=== PATIENT | male | born 1965 | race Caucasian/White ===

== ENCOUNTER 2016-09-24 18:37 | Observation (INO) | payer OTHER, SELFPAY ==
[~2016-09-24] VITALS: Ht 185.4 cm; Wt 100.5 kg
[~2016-09-24 18:37] MED LIST: BACITAB PO; LEVA750T7 PO; UNABLE TO OBTAIN
[2016-09-24 19:38] LABS: VENOUS BASE EXCESS 0.7 (-2.0-2.0); VENOUS O2 SATURATION 97.2 % (60.0-80.0); VENOUS PARTIAL PRESSURE CO2 47.2 mmHg (38.0-50.0); VENOUS PARTIAL PRESSURE O2 93.8 mmHg (30.0-50.0); VENOUS STANDARD HCO3 25.1 MEQ/L
[2016-09-24 19:43] LABS: MEAN CORPUSCULAR HEMOGLOBIN 31.2 pg (27.0-33.0); MEAN CORPUSCULAR HGB CONC 34.6 g/dl (32.0-36.5); MEAN CORPUSCULAR VOLUME 90.2 fl (80.0-96.0); RED CELL DISTRIBUTION WIDTH 14.1 % (11.5-14.5); WHITE BLOOD COUNT 8.8 K/mm3 (4.0-10.0)
[2016-09-24 20:11] LABS: ALBUMIN 3.5 GM/DL (3.2-5.2); ALBUMIN/GLOBULIN RATIO 1.09 (1.00-1.93); ALKALINE PHOSPHATASE 103 U/L (45-117); ALT/SGPT 64 U/L (12-78); ANION GAP 9 MEQ/L (8-16); AST/SGOT 33 U/L (15-37); BILIRUBIN,DIRECT 0.1 MG/DL (0.0-0.2); BILIRUBIN,TOTAL 0.4 MG/DL (0.2-1.0); BLOOD UREA NITROGEN 14 MG/DL (7-18); CALCIUM LEVEL 8.4 MG/DL (8.5-10.1); CARBON DIOXIDE LEVEL 28 MEQ/L (21-32); CHLORIDE LEVEL 108 MEQ/L (98-107); CREATININE FOR GFR 1.02 MG/DL (0.70-1.30); GLOMERULAR FILTRATION RATE > 60.0 (>60); GLUCOSE, FASTING 96 MG/DL (70-105); POTASSIUM SERUM 4.1 MEQ/L (3.5-5.1); SODIUM LEVEL 145 MEQ/L (136-145); TOTAL PROTEIN 6.7 GM/DL (6.4-8.2)
--- NOTE | 2016-09-24 20:50 | REPUSA ---
CT of the head Clinical history: altered mental status. Technique: Multiple axial CT images were obtained through the head without administration of contrast . Findings: The ventricles and sulci are symmetric bilaterally. There is no evidence of acute hemorrhag e or infarct. There is no midline shift, mass effect, or extra-axial fluid collection. The osseous st ructures are unremarkable. The visualized paranasal sinuses and mastoid air cells are clear. Impression: Negative study.
[2016-09-24 20:54] LABS: METHADONE URINE NEGATIVE (NEGATIVE)
[2016-09-24] MEDS ORDERED: NALOXONE INJ 2 MG/2 ML SYRINGE (J2310) IV STA (21:29)
[2016-09-25] VITALS (7 sets, daily range): BP systolic 85–135; BP diastolic 56–80; PULSE 53
[2016-09-25] MEDS: NS 1,000 ML IV SCH ×3 (02:07→21:54)
[2016-09-25] MEDS ORDERED: ONDANSETRON 4MG/2ML VIAL (J2405) IV PRN (02:15)
[2016-09-25] MEDS: HEPARIN SOD (PORCINE) 5000 UNITS/ML VIAL SC SCH ×3 (06:01→21:53)
--- NOTE | 2016-09-25 06:13 | HPEPDOC ---
Medical History and Physical Date of Admission 09/25/2016 History and Physical PRIMARY CARE PROVIDER: None listed ATTENDING: Admitting provider Didier Zapien D.O. hospitalist in the morning will be Dr. Contreras CHIEF COMPLAINT: Altered mentation HISTORY OF PRESENT ILLNESS: 51-year-old gentleman lives alone, was found by police outside of a local area bar and brought to the emergency department for further evaluation due to altered mentation. Apparently, he was difficult to arouse while in the field did receive Narcan once and twice received Narcan while in the emergency department and was slow to improve with his level of lethargy. He was not agitated initially was able to be awoken by sternal rub according to the ER physician. However, he did not seem to improve much with his level of consciousness for 4 hours and his lab findings were relatively unremarkable. CT was negative. Chest x-ray negative and normal chest x-ray. Therefore, the hospitalist was called to evaluate the patient further and possible observation overnight to further determine what his underlying medical issues might be. When I entered the room. The patient was arousable to loud noises verbal stimuli. After redirecting several times. He was related to me that he was unsure where he was at. He did continue to be slightly somnolent, however, he was able to recognize what year it was, in who the current president is. Outside of that, it was difficult to gain a meaningful medical history. However, I was able to reconstruct a history based on some of the answers and the patient was able to give me as well as prior records in the electronic medical record. PAST MEDICAL HISTORY: Patient denies PAST SURGICAL HISTORY: Patient denies SOCIAL HISTORY: Lives alone. There is a strong history of alcohol and drug use. FAMILY HISTORY: Noncontributory ALLERGIES: No known drug allergies REVIEW OF SYSTEMS: Difficult to ascertain. However, the patient denied having specific issues other than what was obtained in the HPI above. HOME MEDICATIONS: Patient denies PHYSICAL EXAMINATION: VITAL SIGNS: Temp 98.6 , pulse 70 and regular. Respiratory rate is 18, nonlabored BP is 103/66, SPO2 is 96% on room air GENERAL APPEARANCE: Well-nourished, however, somewhat lethargic but responsive to loud noise stimuli and sternal rub. He is alert to person and place and the year HEENT: Soft, nontender, nondistended positive bowel sounds. No masses or rebound CARDIOVASCULAR: . Regular rate and rhythm LUNGS: Clear to auscultation ABDOMEN: Soft nontender nondistended positive bowel sounds. No masses. No rebound. MUSCULOSKELETAL: No gross deformities. EXTREMITIES: Good range of motion limitations. No edema. Improvement Intern strength is equal. No limitations. NEUROLOGICAL: He is able to follow some basic commands. Cranial nerves. Be grossly intact. He has not demonstrated any focal neurologic deficits. Skin: Intact. No abrasions, bruising, no track delatorre LABORATORY DATA: See below. IMAGING: Head CT; negative study with no intracranial hemorrhage. Chest x-ray: No acute cardiopulmonary processes. Twelve-lead EKG: Sinus rhythm, ventricular rate of 64. No acute ST-T wave abnormalities ASSESSMENT: . 1. Altered mentation, unknown etiology. Prior history of alcohol abuse and substance abuse. 2. Positive cannabis on tox screen. PLAN: Patient will be admitted to PCU on telemetry. Neuro checks IV normal saline at 100 mL an hour. We'll check a TSH, B12, EEG and MRI are ordered. As well as PT evaluation and PFS consult. He did not have any other significant findings on his labs or diagnostic exams to the emergency department. However, he did have a similar episode in 2013 that was unclear etiology at that time. I do suspect that he has perhaps use a substance that is not recognizable on our tox screen. 3. Like to observe him for the next few hours to see if he becomes more alert, but will take her room. The patient's care in the morning and we'll see if we can find a better reason to his abnormalities. DVT prophylaxis subcutaneous heparin. Disposition: patient be admitted as observation and likely discharged sometime tomorrow. Vital Signs Vital Signs Date Time Temp Pulse Resp B/P (MAP) Pulse Ox O2 Delivery O2 Flow Rate FiO2 09/25/16 01:35 70 18 96 Room Air 09/25/16 01:20 103/66 (78) 09/24/16 19:00 98.6 Laboratory Data Labs 24H Laboratory Tests 2 09/24/16 19:21: Bedside Glucose (Misc Panel) 86 09/24/16 19:25: Blood Gas Bicarbonate Standard 25.1, Venous Blood pH 7.368, Venous Blood Partial Pressure CO2 47.2, Venous Blood Partial Pressure O2 93.8H, Venous Blood Total Carbon Dioxide 28.0, Venous Blood HCO3 26.6, Venous Blood Oxygen Saturation 97.2H, Venous Blood Base Excess 0.7, Anion Gap 9, Glomerular Filtration Rate > 60.0, Osmolality 293, Calcium Level 8.4L, Aspartate Amino Transf (AST/SGOT) 33, Alanine Aminotransferase (ALT/SGPT) 64, Alkaline Phosphatase 103, Total Bilirubin 0.4, Direct Bilirubin 0.1, Total Protein 6.7, Albumin 3.5, Albumin/Globulin Ratio 1.09, Thyroid Stimulating Hormone (TSH) 0.964, Salicylates Level 3.0L, Acetaminophen Level < 2.0L, Ethyl Alcohol Level < 0.003 09/24/16 20:04: Lactic Acid Level 0.5, Ammonia 27, Urine Amphetamines Screen NEGATIVE, Urine Benzodiazepines Screen NEGATIVE, Urine Opiates Screen NEGATIVE, Urine Methadone Screen NEGATIVE, Urine Barbiturates Screen NEGATIVE, Urine Phencyclidine Screen NEGATIVE, Urine Cocaine Metabolite Screen NEGATIVE, Urine Cannabinoids Screen POSITIVEH CBC/BMP Laboratory Tests 09/24/16 19:25 Red Blood Count 4.29 L, Mean Corpuscular Volume 90.2, Mean Corpuscular Hemoglobin 31.2, Mean Corpuscular Hemoglobin Concent 34.6, Red Cell Distribution Width 14.1 Home Medications No Active Prescriptions or Reported Meds Allergies Coded Allergies: No Known Drug Allergy (Verified Allergy, Unknown, 11/27/13) INFO PER ED FLOW SHEET DIDIER ZAPIEN DO Sep 25, 2016 02:28
--- NOTE | 2016-09-25 08:06 | ECGEPIP ---
Stationary ECG Study [facility] - ED Test Date: 2016-09-24 Pat Name: ANEL PALM Department: Room: [place] [address] Gender: M Yard Person: kimberly : 1965 Requested By: MARIO Concepcion Order Number: [id number] Reading MD: James Chery Measurements Intervals [place] Rate: 64 P: 52 [place]: 197 QRS: -10 QRSD: 118 T: 21 QT: 392 QTc: 406 Interpretive Statements SINUS RHYTHM MODERATE INTRAVENTRICULAR CONDUCTION DELAY SIMILAR TO 12/17/14 Electronically Signed On 09-25-2016 8:06:22 EDT by James Chery
[2016-09-25] MEDS: DOCUSATE SODIUM 100 MG CAP PO SCH ×2 (09:20→20:45)
--- NOTE | 2016-09-25 10:03 | REP ---
AP PORTABLE CHEST: 09/24/2016. Comparison: Portable chest 07/24/2014, 11/26/2013, CT chest 11/26/13. Clinical history: Altered mental status. Findings: Lungs are hypoinflated compared to the previous study. Heart size not enlarged for portable technique with low level of inflation. There is increased patchy density mid and lower lung zones, left more than right which may reflect some patchy atelectasis or early infiltrates as seen on the previous CT in 2013. No gross cardiomegaly. There is venous hypertension without pulmonary edema. The aorta is mildly tortuous. Airway intact. Bones without acute finding. Impression: 1. Mildly hypoinflated chest with patchy bilateral basilar areas of atelectasis or early infiltrates, left greater than right. This is similar to the appearance on CT scan in 2014. No effusion or dense consolidation with air bronchograms. 2. Heart not enlarged for this degree of inflation. There is some venous hypertension without edema or gross effusion. Signed by Deon Handley MD 09/25/2016 05:55 P
[2016-09-25] MEDS ORDERED: FAMOTIDINE 20 MG TAB PO ONE (13:00)
--- NOTE | 2016-09-25 19:10 | IPNPDOC ---
Text Note Date of Service The patient was seen on 09/25/16. NOTE Patient was admitted by my colleague Dr. De Los Santos early this morning. He was seen and examined by myself today. 51-year-old male with unknown past medical history but, per prior records, history of alcohol and drug abuse, who was found by the police outside a local bar and brought to the emergency department for further evaluation of his altered mentation. His tox screen was positive only for marijuana, and there was apparently no alcohol in his system. He had no response to Narcan. CT of the head, ammonia, ABG, CBC, CMP, TSH, lactate were all unremarkable. At this time, we are still awaiting an MRI of his head, as well as an EEG. When I examined him today, he was arousable to verbal stimuli, and could tell me his name, where he was, and what year it was. However, he could not consistently stay awake, and kept getting drowsy and falling back asleep. Additionally, on his telemetry he was noted to be bradycardic to the 40s. EKG did not show any evidence of acute infarct or ischemia and was unchanged from admission. At one point, he did complain of chest pain, but troponins have been unremarkable. We will continue to monitor his heart rate, as well as await MRI and EEG results. At this time, the patient is not on any rate suppressing medications. VS,Fishbone, I+O VS, Fishbone, I+O Laboratory Tests 09/24/16 19:25 Red Blood Count 4.29 L, Mean Corpuscular Volume 90.2, Mean Corpuscular Hemoglobin 31.2, Mean Corpuscular Hemoglobin Concent 34.6, Red Cell Distribution Width 14.1 Vital Signs Date Time Temp Pulse Resp B/P (MAP) Pulse Ox O2 Delivery O2 Flow Rate FiO2 09/25/16 15:02 97.7 54 19 135/71 (92) 98 Room Air I&O- Last 24 Hours up to 6 AM 09/25/16 06:00 Intake Total 400 ml Output Total 775 ml Balance -375 ml JEFFERSON BEAN Sep 25, 2016 19:10
[2016-09-25] MEDS ORDERED: FAMOTIDINE 20 MG TAB PO SCH (21:00)
--- NOTE | 2016-09-25 21:58 | ECGEPIP ---
Stationary ECG Study [facility] Test Date: 2016-09-25 Pat Name: ANEL PALM Department: Room: [facility] Gender: M Guest Specialist: SEAMUS : 1965 Requested By: JEFFERSON Jain Order Number: [id number] Reading MD: Chao Lee Measurements Intervals [place] Rate: 51 P: 35 [place]: 208 QRS: 19 QRSD: 118 T: 10 QT: 436 QTc: 404 Interpretive Statements SINUS BRADYCARDIA LOW QRS VOLTAGE MODERATE INTRAVENTRICULAR CONDUCTION DELAY Electronically Signed On 09-25-2016 21:58:23 EDT by Chao Lee
[2016-09-26 04:00] VITALS: BP 121/72
[2016-09-26 05:20] LABS: MEAN CORPUSCULAR HEMOGLOBIN 31.1 pg (27.0-33.0); MEAN CORPUSCULAR HGB CONC 34.4 g/dl (32.0-36.5); MEAN CORPUSCULAR VOLUME 90.5 fl (80.0-96.0); WHITE BLOOD COUNT 8.7 K/mm3 (4.0-10.0)
[2016-09-26 05:34] LABS: ALBUMIN 2.9 GM/DL (3.2-5.2); ALBUMIN/GLOBULIN RATIO 0.85 (1.00-1.93); ALKALINE PHOSPHATASE 95 U/L (45-117); ALT/SGPT 65 U/L (12-78); ANION GAP 3 MEQ/L (8-16); AST/SGOT 39 U/L (15-37); BILIRUBIN,TOTAL 0.3 MG/DL (0.2-1.0); BLOOD UREA NITROGEN 17 MG/DL (7-18); CALCIUM LEVEL 8.4 MG/DL (8.5-10.1); CARBON DIOXIDE LEVEL 30 MEQ/L (21-32); CHLORIDE LEVEL 111 MEQ/L (98-107); CREATININE FOR GFR 0.95 MG/DL (0.70-1.30); GLOMERULAR FILTRATION RATE > 60.0 (>60); GLUCOSE, FASTING 95 MG/DL (70-105); MAGNESIUM LEVEL 2.1 MG/DL (1.8-2.4); POTASSIUM SERUM 4.3 MEQ/L (3.5-5.1); SODIUM LEVEL 144 MEQ/L (136-145); TOTAL PROTEIN 6.3 GM/DL (6.4-8.2)
[2016-09-26] MEDS: HEPARIN SOD (PORCINE) 5000 UNITS/ML VIAL SC SCH (06:06)
--- NOTE | 2016-09-26 17:00 | DS.PDOC ---
Discharge Summary General Date of Admission Sep 24, 2016 at 18:38 Date of Discharge Left AMA on 09/26/2016 around 7:30 in the morning Discharge Summary DISCHARGE SUMMARY DATE OF ADMISSION: 09/25/2016 DATE OF DISCHARGE: Patient left AMA on 09/26/2016 PRIMARY CARE PHYSICIAN: None DISCHARGE DIAGNOS(E)S: Encephalopathy of unknown etiology Bradycardia HPI & HOSPITAL COURSE: 51-year-old male with unknown past medical history but, per prior records, history of alcohol and drug abuse, who was found by the police outside a local bar and brought to the emergency department for further evaluation of his altered mentation. His tox screen was positive only for marijuana, and there was apparently no alcohol in his system. He had no response to Narcan. CT of the head, ammonia, ABG, CBC, CMP, TSH, lactate were all unremarkable. MRI of his head, as well as an EEG were ordered on admission but not completed prior to him leaving. Additionally, on his telemetry he was noted to be bradycardic to the 40s. EKG did not show any evidence of acute infarct or ischemia and was unchanged from admission. At one point, he did complain of chest pain, but troponins have been unremarkable. I was called by nursing this morning that around 7:30 he pulled his IV out and refused to wait for me to be called and to come talk to him, and walked out. DISPOSITION: Patient left AMA, exiting the floor quite rapidly, refusing to wait for the nursing staff to call me and come talk to him. Vital Signs/I&Os Vital Signs Date Time Temp Pulse Resp B/P (MAP) Pulse Ox O2 Delivery O2 Flow Rate FiO2 09/26/16 04:00 98.1 48 18 121/72 (88) 96 Room Air I&O- Last 24 Hours up to 6 AM 09/26/16 06:00 Intake Total 3450 ml Output Total 0 ml Balance 3450 ml Laboratory Data Labs 24H Laboratory Tests 2 09/26/16 05:06: Anion Gap 3L, Glomerular Filtration Rate > 60.0, Blood Urea Nitrogen 17, Creatinine 0.95, Sodium Level 144, Potassium Level 4.3, Chloride Level 111H, Carbon Dioxide Level 30, Calcium Level 8.4L, Aspartate Amino Transf (AST/SGOT) 39H, Alanine Aminotransferase (ALT/SGPT) 65, Alkaline Phosphatase 95, Total Bilirubin 0.3, Total Protein 6.3L, Albumin 2.9L, Magnesium Level 2.1, Albumin/ Globulin Ratio 0.85L CBC/BMP Laboratory Tests 09/26/16 05:06 Red Blood Count 4.31, Mean Corpuscular Volume 90.5, Mean Corpuscular Hemoglobin 31.1, Mean Corpuscular Hemoglobin Concent 34.4, Red Cell Distribution Width 14.0 , Calcium Level 8.4 L, Aspartate Amino Transf (AST/SGOT) 39 H, Alanine Aminotransferase (ALT/SGPT) 65, Alkaline Phosphatase 95, Total Bilirubin 0.3, Total Protein 6.3 L, Albumin 2.9 L Discharge Medications No Active Prescriptions or Reported Meds Allergies Coded Allergies: No Known Drug Allergy (Verified Allergy, Unknown, 11/27/13) INFO PER ED FLOW SHEET JEFFERSON BEAN Sep 26, 2016 17:00
== END 2016-09-26 07:40 | disposition left against medical advice (07) ==
LOC: EDBD 18:37 → M ED 18:37 → M ED INP 18:38 → UNDOADMOB 09-25 02:07 → M PCU 09-25 14:54
PROVIDERS: ADMIT Hospitalist; ATTEND Hospitalist
DX: R41.82 Altered mental status, unspecified (principal); G93.40 Encephalopathy, unspecified; Z53.21 Procedure and treatment not carried out due to patient leaving prior to being seen by health care provider; R00.1 Bradycardia, unspecified; F10.10 Alcohol abuse, uncomplicated; F12.10 Cannabis abuse, uncomplicated
CPT/HCPCS: 36415; 70450; 71010; 80048; 80053; 80076; 80307; 82140; 82550; 82553; 82607; 82803; 83605; 83735; 83930; 84443; 85027; 93005; 93041; 94760; 96372; 96374; 99285; G0480; J2310